=== PATIENT | female | born 2000 | race Caucasian/White ===

== ENCOUNTER 2020-08-14 17:42 | Emergency (ER) | payer OTHER ==
[~2020-08-14] VITALS: Ht 170.2 cm; Wt 61.2 kg
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
[2020-08-14] MEDS ORDERED: ACETAMINOPHEN 500 MG TABLET PO ONE (18:15)
[2020-08-14] MEDS ORDERED: IBUPROFEN 600 MG TABLET. PO ONE (18:15)
[2020-08-14 18:58] VITALS: BP 105/58
== END 2020-08-14 18:59 | disposition home or self-care (01) ==
LOC: ER 17:42
DX: S06.0X0A Concussion without loss of consciousness, initial encounter (principal); M54.6 Pain in thoracic spine; M54.2 Cervicalgia; V59.9XXA Occupant (driver) (passenger) of pick-up truck or van injured in unspecified traffic accident, initial encounter; Y93.89 Activity, other specified; Y92.413 State road as the place of occurrence of the external cause; Y99.8 Other external cause status
CPT/HCPCS: 99283

== ENCOUNTER 2020-08-15 19:45 | Emergency (ER) | payer OTHER ==
[~2020-08-15] VITALS: Ht 167.6 cm; Wt 60.1 kg
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
[2020-08-15] MEDS ORDERED: diphenhydrAMINE 50 MG/ML VIAL IVP ONE (20:30)
[2020-08-15] MEDS ORDERED: oxyCODONE/APAP 5/325 1 TAB TABLET PO ONE (20:30)
[2020-08-15] MEDS ORDERED: IV RINGERS SOLUTION,LACTATED 1,000 ML IV SCH (20:30)
[2020-08-15] MEDS ORDERED: PROCHLORPERAZINE 10 MG/2 ML VIAL. IV ONE (20:30)
[2020-08-15 20:37] VITALS: BP 122/75
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
[2020-08-15] MEDS ORDERED: ORPHENADRINE CITRATE 60 MG/2 ML VIAL. IM ONE (21:00)
--- NOTE | 2020-08-15 21:05 | EKG ---
[address] [address] Test Date: 2020-08-15 Test Time: 20:54:08 Pat Name: ALLISON MARI Department: Room: Gender: F Teaching Associate: : 2000 Requested By: FELISA GUERRERO Order Number: [id number] Reading MD: Measurements Intervals [place] Rate: 68 P: 57 MN: 160 QRS: 71 QRSD: 72 T: 44 QT: 368 QTc: 396 Interpretive Statements SINUS RHYTHM NORMAL ECG RI6.02 No previous ECG available for comparison
[2020-08-15 21:25] LABS: BARBITURATES NEG (NEG); BENZODIAZEPINES NEG (NEG); CANNABINOIDS NEG (NEG); COCAINE NEG (NEG); METHADONE NEG (NEG); OPIATES NEG (NEG); PHENCYCLIDINE NEG (NEG)
[2020-08-15 21:27] LABS: AMPHETAMINE/METHAMPHETAMINE NEG (NEG)
[2020-08-15 21:33] LABS: BASO # 0.1 x10^3/uL (0.0-0.2); BASO % 1 % (0-3); EOS # 0.2 x10^3/uL (0.0-0.7); EOS % 2 % (0-3); HEMATOCRIT 39.3 % (36.0-47.0); HEMOGLOBIN 13.4 g/dL (12.0-15.5); LYMPH # 2.1 x10^3/uL (1.0-4.8); LYMPH % 24 % (24-48); MEAN CORPUSCULAR HEMOGLOBIN 29 pg (25-35); MEAN CORPUSCULAR HGB CONC 34 g/dL (31-37); MEAN CORPUSCULAR VOLUME 87 fL (79-100); MONO # 0.6 x10^3/uL (0.0-1.1); MONO % 7 % (0-9); NEUT # 5.7 x10^3uL (1.8-7.7); NEUT % 67 % (31-73); PLATELET COUNT 259 x10^3/uL (140-400); RED BLOOD COUNT 4.55 x10^6/uL (3.50-5.40); RED CELL DISTRIBUTION WIDTH 12.3 % (11.5-14.5); WHITE BLOOD COUNT 8.6 x10^3/uL (4.0-11.0)
[2020-08-15 21:44] LABS: CALCIUM 8.1 mg/dL (8.5-10.1); CREATININE 0.9 mg/dL (0.6-1.0); POTASSIUM 3.7 mmol/L (3.5-5.1)
[2020-08-15 22:00] LABS: ALBUMIN 3.4 g/dL (3.4-5.0); DIRECT BILIRUBIN 0.1 mg/dL (0.0-0.2); MAGNESIUM 1.9 mg/dL (1.8-2.4); TOTAL BILIRUBIN 0.2 mg/dL (0.2-1.0)
[2020-08-15 22:19] LABS: BACTERIA,URINE FEW /HPF (0-FEW); BILIRUBIN,URINE NEG (NEG); CLARITY,URINE CLEAR; COLOR,URINE YELLOW; GLUCOSE,URINE NEG (NEG); NITRITE,URINE NEG (NEG); RBC,URINE OCC /HPF (0-2); SQUAMOUS EPITHELIAL CELL,UR FEW /LPF; UROBILINOGEN,URINE 0.2 mg/dL (0.2 mg/dL); WBC,URINE OCC /HPF (0-4)
[2020-08-16] MEDS ORDERED: SUMAtriptan SUCC 6 MG/0.5 ML VIAL SQ ONE ×2 (00:30→00:49)
[2020-08-16] MEDS ORDERED: ONDA4TAB7 PO (00:33)
[2020-08-16] MEDS ORDERED: HYDR-1179 PO (00:34)
[2020-08-16] MEDS ORDERED: SUMA100T3 PO (00:34)
--- NOTE | 2020-08-18 09:25 | NUR ---
IP: attempt to notify patient of COVID result. Left callback message.
--- NOTE | 2020-08-20 14:47 | NUR ---
IP: patient notified of COVID result.
== END 2020-08-16 01:18 | disposition home or self-care (01) ==
LOC: ER 19:45
DX: S46.819A Strain of other muscles, fascia and tendons at shoulder and upper arm level, unspecified arm, initial encounter (principal); Z20.822 Contact with and (suspected) exposure to COVID-19; G43.909 Migraine, unspecified, not intractable, without status migrainosus; H53.8 Other visual disturbances; R11.0 Nausea; J45.909 Unspecified asthma, uncomplicated; F31.9 Bipolar disorder, unspecified; Z86.73 Personal history of transient ischemic attack (TIA), and cerebral infarction without residual deficits; Z98.890 Other specified postprocedural states; V98.8XXA Other specified transport accidents, initial encounter; Y93.89 Activity, other specified; Y92.89 Other specified places as the place of occurrence of the external cause; Y99.8 Other external cause status
CPT/HCPCS: 36415; 70450; 71045; 80048; 80076; 80307; 81001; 81025; 82550; 83735; 83880; 84484; 84702; 85025; 85610; 85730; 93005; 96361; 96372; 96374; 96375; 99285; C9803; J0780; J1200; J2360; J3030; J7120; U0003

== ENCOUNTER 2021-07-29 18:06 | Emergency (ER) | payer OTHER ==
[~2021-07-29] VITALS: Ht 167.6 cm; Wt 63.1 kg
[~2021-07-29 18:06] MED LIST: HYDR-1179 PO; ONDA4TAB7 PO; SUMA100T3 PO
[2021-07-29 19:10] VITALS: BP 120/65
--- NOTE | 2021-07-29 19:11 | PHYS DOC ---
Past History Past Medical History: No Pertinent History Past Surgical History: No Surgical History Additional Past Surgical Histo: EYE SURGERY; I&D LEG Alcohol Use: None General Adult EDM: Chief Complaint: FEVER HPI: HPI: Patient is a 21 year old female who presents with above hx and complaints fever, chills, malaise, arthralgia, myalgia, pharyngitis. Patient normally follows with Dr. Villatoro. Had recent travel to [place].. No specific ill contacts. Does have a history of asthma. No history immunosuppression. No history of IV drug use. Normally healthy. Review of Systems: Review of Systems: Constitutional: Complains of fever or chills Eyes: Denies change in visual acuity HENT: Complains of sore throat Respiratory: Denies cough or shortness of breath Cardiovascular: Denies chest pain or edema GI: Denies abdominal pain, nausea, vomiting, bloody stools or diarrhea : Denies dysuria Musculoskeletal: Complains of generalized muscle and joint, back pain. Integument: Denies rash Neurologic: Denies headache, focal weakness or sensory changes Endocrine: Denies polyuria or polydipsia Lymphatic: Denies swollen glands Psychiatric: Denies depression or anxiety Family History: Family History: Noncontributory Current Medications: Current Meds: See nursing for home meds Allergies: Allergies: Allergies Coded Allergies Type Severity Reaction Last Updated Verified Sulfa (Sulfonamide Antibiotics) Allergy Unknown Anaphylaxis 08/14/20 Yes ceftriaxone Allergy Unknown Anaphylaxis 08/14/20 Yes Physical Exam: PE: Constitutional: Well developed, well nourished, no acute distress, non-toxic appearance. [] HENT: Normocephalic, atraumatic, bilateral external ears normal, oropharynx moist, postnasal drainage, mild erythema no oral exudates, nose swollen turbinates clear rhinorrhea Eyes: PERRLA, EOMI, conjunctiva normal, no discharge. [] Neck: Normal range of motion, no tenderness, supple, no stridor. [] Cardiovascular:Heart rate regular rhythm, no murmur [] Lungs & Thorax: Bilateral breath sounds equal apex of few scattered wheezes auscultation [] Abdomen: Bowel sounds normal, soft, no tenderness, no masses, no pulsatile masses. [] Skin: Warm, dry, no erythema, no rash. [] Back: No tenderness, no CVA tenderness. [] Extremities: No tenderness, no cyanosis, no clubbing, ROM intact, no edema. [] No cording. Neurologic: Alert and oriented X 3, normal motor function, normal sensory func tion, no focal deficits noted. [] Psychologic: Affect anxious., judgement normal, mood normal. [] EKG: EKG: [] Radiology/Procedures: Radiology/Procedures: [] Heart Score: C/O Chest Pain: N/A Risk Factors: Risk Factors: DM, Current or recent (<one month) smoker, HTN, HLP, family history of CAD, obesity. Risk Scores: Score 0 - 3: 2.5% MACE over next 6 weeks - Discharge Home Score 4 - 6: 20.3% MACE over next 6 weeks - Admit for Clinical Observation Score 7 - 10: 72.7% MACE over next 6 weeks - Early Invasive Strategies Course & Med Decision Making: Course & Med Decision Making Pertinent Labs and Imaging studies reviewed. (See chart for details) Push fluids. Self isolate x 5 days and retest on day 5, to make sure you are not shedding virus. Tylenol and Ibuprofen for discomfort. Must wear a mask anytime she is in contact with others. Impression: 1. Viral Syndrome 2. COVID - rapid positive [] Dragon Disclaimer: Dragon Disclaimer: This electronic medical record was generated, in whole or in part, using a voice recognition dictation system. Departure Departure: Referrals: RANDOLPH PINK DO, MPH (PCP) Dragon Disclaimer This chart was dictated in whole or in part using Voice Recognition software in a busy, high-work load, and often noisy Emergency Department environment. It may contain unintended and wholly unrecognized errors or omissions. Dragon Disclaimer This chart was dictated in whole or in part using Voice Recognition software in a busy, high-work load, and often noisy Emergency Department environment. It may contain unintended and wholly unrecognized errors or omissions. Dragon Disclaimer This chart was dictated in whole or in part using Voice Recognition software in a busy, high-work load, and often noisy Emergency Department environment. It may contain unintended and wholly unrecognized errors or omissions. FELISA GUERRERO MD Jul 29, 2021 19:11
[2021-07-29] MEDS ORDERED: IBUPROFEN 600 MG TABLET. PO ONE (20:00)
[2021-07-29] MEDS ORDERED: ACETAMINOPHEN 500 MG TABLET PO ONE (20:00)
[2021-07-29 20:22] LABS: INFLUENZA A PATIENT NEGATIVE (NEGATIVE); INFLUENZA B PATIENT NEGATIVE (NEGATIVE)
== END 2021-07-29 21:02 | disposition home or self-care (01) ==
LOC: ER 18:06
DX: U07.1 COVID-19 (principal); B34.9 Viral infection, unspecified; Z88.2 Allergy status to sulfonamides; Z88.1 Allergy status to other antibiotic agents
CPT/HCPCS: 87070; 87426; 87804; 87880; 99283

== ENCOUNTER 2021-08-04 00:25 | Emergency (ER) | payer OTHER ==
[~2021-08-04] VITALS: Ht 167.6 cm; Wt 63.1 kg
--- NOTE | 2021-08-04 00:30 | PHYS DOC ---
Past History Past Medical History: No Pertinent History, Asthma Additional Past Medical Histor: hypoglycemia Past Surgical History: No Surgical History Additional Past Surgical Histo: EYE SURGERY; I&D LEG Alcohol Use: None General Adult HPI: HPI: "..I ve been sick since I was diagnosis of COVID (07/29/21..)..Today coughing so bad .. I puke..." Patient is a 21 year old female who presents with above hx of COVID positive 07/29/21 after trip to [place]. Patient states she is over the chills fever malaise and arthralgia and myalgia with pharyngitis.. Patient however now is coughing so bad that she vomits. No recent travel. No bad food. No history of immunosuppression. Not had flu vaccination. Has not had COVID vaccination. Has not had Pneumovax. Patient does not know her best peak flow. Review of Systems: Review of Systems: Constitutional: Denies fever or chills Eyes: Denies change in visual acuity HENT: Denies nasal congestion or sore throat Respiratory: History of cough and wheezing Cardiovascular: Denies chest pain or edema GI: History of nausea and vomiting from coughing : Denies dysuria Musculoskeletal: Denies back pain or joint pain Integument: Denies rash Neurologic: Denies headache, focal weakness or sensory changes Endocrine: Denies polyuria or polydipsia Lymphatic: Denies swollen glands Psychiatric: Denies depression or anxiety Family History: Family History: Noncontributory Current Medications: Current Meds: See nursing for home meds Allergies: Allergies: Allergies Coded Allergies Type Severity Reaction Last Updated Verified Sulfa (Sulfonamide Antibiotics) Allergy Unknown Anaphylaxis 08/14/20 Yes ceftriaxone Allergy Unknown Anaphylaxis 08/14/20 Yes Physical Exam: PE: Constitutional: Well developed, well nourished, moderate acute distress, non- toxic appearance. [] HENT: Normocephalic, atraumatic, bilateral external ears normal, oropharynx moist, no oral exudates, nose normal. [] Eyes: PERRLA, EOMI, conjunctiva normal, no discharge. [] Neck: Normal range of motion, no tenderness, supple, no stridor. [] Cardiovascular:Heart rate regular rhythm, no murmur [] Lungs & Thorax: Bilateral breath sounds equal apex with scattered wheezing throughout auscultation [] severe coughing episodes to the point of vomiting Abdomen: Bowel sounds normal, soft, no tenderness, no masses, no pulsatile masses. [] Skin: Warm, dry, no erythema, no rash. [] Back: No tenderness, no CVA tenderness. [] Extremities: No tenderness, no cyanosis, no clubbing, ROM intact, no edema. [] Neurologic: Alert and oriented X 3, normal motor function, normal sensory function, no focal deficits noted. [] Psychologic: Affect anxious, judgement normal, mood normal. [] EKG: EKG: [] Radiology/Procedures: Radiology/Procedures: [][place] [address] IMAGING REPORT Signed PATIENT: ALLISON MARI ACCOUNT: [id number] : 2000 LOCATION: ER AGE: 21 SEX: F EXAM STATUS: REG ER ORD. PHYSICIAN: FELISA GUERRERO MD REASON: Hx. COVID pneumonia Dx 07/29. PROCEDURE: CHEST PA & LATERAL XR CHEST 2V History: Reason: Hx. COVID pneumonia Dx 07/29. / Spl. Instructions: / History: Comparison: August 15, 2020 Findings: No consolidation or pleural effusion. Normal heart size. No pneumothorax. Impression: 1. No acute cardiopulmonary process. Electronically signed by: Edson Madera DO (08/04/2021 2:10 AM) [facility] DICTATED AND SIGNED BY: EDSON MADERA DO DATE: 08/04/21 020 CC: FELISA GUERRERO MD; RANDOLPH PINK DO, M[facility] ~MTH0 0 Heart Score: C/O Chest Pain: N/A Risk Factors: Risk Factors: DM, Current or recent (<one month) smoker, HTN, HLP, family history of CAD, obesity. Risk Scores: Score 0 - 3: 2.5% MACE over next 6 weeks - Discharge Home Score 4 - 6: 20.3% MACE over next 6 weeks - Admit for Clinical Observation Score 7 - 10: 72.7% MACE over next 6 weeks - Early Invasive Strategies Course & Med Decision Making: Course & Med Decision Making Pertinent Labs and Imaging studies reviewed. (See chart for details) Take prednisone 50 mg daily for 5 days. Take Compazine 10 mg with 25 mg to 50 mg of Benadryl 4 times a day for active vomiting. Use MDI or albuterol treatments 4 times a day. Follow-up primary care. Return if any concerns. Get flu vaccination when you are off prednisone. Get Pneumovax vaccination when you are off prednisone. Get COVID vaccination in 5 to 6 months. Follow-up primary care. Return if any concerns. Impression: 1. 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 Reactive airway/asthma exacerbation [] Dragon Disclaimer: Dragon Disclaimer: This electronic medical record was generated, in whole or in part, using a voice recognition dictation system. Departure Departure: Referrals: RANDOLPH PINK DO, [facility] (PCP) Scripts Prochlorperazine Maleate (Compazine) 10 Mg Tablet 10 MG PO QIDPRN PRN for NAUSEA/VOMITING, #30 TAB Prov: FELISA GUERRERO MD 08/04/21 Albuterol Sulfate (ALBUTEROL SULFATE NEB SOLN ) 2.5 Mg/3 Ml Vial.neb 2.5 MG NEB QID for FOR ASTHMA, #120 EACH 0 Refills Prov: FELISA GUERRERO MD 08/04/21 Prednisone (PREDNISONE) 50 Mg Tablet 50 MG PO DAILY for reactiveairway for 5 Days, #5 TAB Prov: FELISA GUERRERO MD 08/04/21 Dragon Disclaimer This chart was dictated in whole or in part using Voice Recognition software in a busy, high-work load, and often noisy Emergency Department environment. It may contain unintended and wholly unrecognized errors or omissions. FELISA GUERRERO MD Aug 04, 2021 00:30
[2021-08-04] MEDS ORDERED: diphenhydrAMINE 50 MG/ML VIAL IM ONE (00:45)
[2021-08-04] MEDS ORDERED: PROCHLORPERAZINE 10 MG/2 ML VIAL. IM ONE (00:45)
[2021-08-04] MEDS ORDERED: PROC10TA57 PO (02:08)
[2021-08-04] MEDS ORDERED: ALBU2.5V5 NEB (02:08)
[2021-08-04] MEDS ORDERED: PRED50TA PO (02:08)
--- NOTE | 2021-08-04 02:12 | RAD ---
XR CHEST 2V History: Reason: Hx. COVID pneumonia Dx 07/29. / Spl. Instructions: / History: Comparison: August 15, 2020 Findings: No consolidation or pleural effusion. Normal heart size. No pneumothorax. Impression: 1. No acute cardiopulmonary process. Electronically signed by: Edson Madera DO (08/04/2021 2:10 AM) [facility]
[2021-08-04 02:13] LABS: BACTERIA,URINE FEW /HPF (0-FEW); BILIRUBIN,URINE NEG (NEG); CLARITY,URINE CLEAR; COLOR,URINE YELLOW; GLUCOSE,URINE NEG (NEG); NITRITE,URINE NEG (NEG); RBC,URINE OCC /HPF (0-2); SQUAMOUS EPITHELIAL CELL,UR MOD /LPF; WBC,URINE OCC /HPF (0-4)
[2021-08-04] MEDS ORDERED: ALBUTEROL SULFATE 8GM INHALER. INH ONE (02:15)
[2021-08-04] MEDS ORDERED: predniSONE 10 MG TABLET. PO ONE (02:15)
[2021-08-04 02:20] VITALS: BP 108/64
== END 2021-08-04 02:25 | disposition home or self-care (01) ==
LOC: ER 00:25
DX: G93.3 Postviral and related fatigue syndromes (principal); J45.901 Unspecified asthma with (acute) exacerbation; Z88.2 Allergy status to sulfonamides; Z88.1 Allergy status to other antibiotic agents
CPT/HCPCS: 71046; 81001; 81025; 94640; 96372; 99284; J0780; J1200; J7512; 94664

== ENCOUNTER 2021-10-13 15:34 | Emergency (ER) | payer OTHER ==
[~2021-10-13] VITALS: Ht 167.6 cm; Wt 63.1 kg
[~2021-10-13 15:34] MED LIST changes: +ALBU2.5V5 NEB; +PRED50TA PO; +PROC10TA57 PO
[2021-10-13 15:56] VITALS: BP 102/64
--- NOTE | 2021-10-13 16:11 | PHYS DOC ---
Past History Past Medical History: No Pertinent History, Asthma Additional Past Medical Histor: hypoglycemia, stroke, PCOS Past Surgical History: No Surgical History Additional Past Surgical Histo: EYE SURGERY; I&D LEG, Alcohol Use: None General Adult EDM: Chief Complaint: ABDOMINAL PAIN HPI: HPI: 21-year-old female presents with abdominal pain. Patient states the pain started about a week ago. The pain is made much worse after she eats anything. It increases to an 8 or 9 out of 10. It is currently 4 out of 10 in the epigastric and umbilical area. She has had no difficulty urinating or defecating. Denies fever or chills. There is a history of gallbladder disease in her family. Review of Systems: Review of Systems: Constitutional: Denies fever or chills Eyes: Denies change in visual acuity HENT: Denies nasal congestion or sore throat Respiratory: Denies cough or shortness of breath Cardiovascular: Denies chest pain or edema GI: Periumbilical and epigastric abdominal pain. Denies nausea, vomiting, bloody stools or diarrhea : Denies dysuria Musculoskeletal: Denies back pain or joint pain Integument: Denies rash Neurologic: Denies headache, focal weakness or sensory changes Endocrine: Denies polyuria or polydipsia Lymphatic: Denies swollen glands Psychiatric: Denies depression or anxiety Current Medications: Current Meds: Current Medications Medications (Trade) Dose Ordered Sig/Wilmer Start Time Stop Time Status Last Admin Dose Admin Sodium Chloride 1,000 ml @ 1,000 mls/hr 1X ONCE 10/13/21 16:15 10/13/21 17:14 UNV Allergies: Allergies: Allergies Coded Allergies Type Severity Reaction Last Updated Verified Sulfa (Sulfonamide Antibiotics) Allergy Unknown Anaphylaxis 08/14/20 Yes ceftriaxone Allergy Unknown Anaphylaxis 08/14/20 Yes Physical Exam: PE: Constitutional: Well developed, well nourished, no acute distress, non-toxic appearance. [] HENT: Normocephalic, atraumatic, bilateral external ears normal, oropharynx moist, no oral exudates, nose normal. [] Eyes: PERRLA, EOMI, conjunctiva normal, no discharge. [] Neck: Normal range of motion, no tenderness, supple, no stridor. [] Cardiovascular: Heart rate regular rhythm, no murmur [] Lungs & Thorax: Bilateral breath sounds clear to auscultation [] Abdomen: Bowel sounds normal, soft, periumbilical and epigastric tenderness, no masses, no pulsatile masses. [] Skin: Warm, dry, no erythema, no rash. [] Back: No tenderness, no CVA tenderness. [] Extremities: No tenderness, no cyanosis, no clubbing, ROM intact, no edema. [] Neurologic: Alert and oriented X 3, normal motor function, normal sensory function, no focal deficits noted. [] Psychologic: Affect normal, judgement normal, mood normal. [] Current Patient Data: Vital Signs: Vital Signs Date Time Temp Pulse Resp B/P (MAP) Pulse Ox O2 Delivery O2 Flow Rate FiO2 10/13/21 15:56 98.2 74 16 102/64 (77) 94 Room Air EKG: EKG: [] Radiology/Procedures: Radiology/Procedures: [] Impressions: Exam Date: 10/13/2021 4:[address] ABDOMEN+PELVIS W Indication: Reason: epigastric pain, nauseated / Spl. Instructions: / History: . TECHNIQUE: CT examination of the abdomen and pelvis was performed following the administration of nonionic intravenous contrast. One or more of the following dose reduction techniques were utilized: *Automated exposure control (AEC) *Adjustment of mA and/or kV according to patient size *Use of iterative reconstruction technique *CT scan done according to ALARA, or ALARA/IMAGE GENTLY FINDINGS: The visualized lung bases are clear. The liver, gallbladder, spleen, pancreas, adrenal glands and kidneys are normal. Urinary bladder is normal in appearance. There is a 2.9 cm right adnexal cyst. There is no bowel obstruction or inflammation. The appendix is normal. No significant atherosclerotic calcifications are seen. No lymphadenopathy or ascites is seen. Osseous structures are intact. IMPRESSION: No evidence of acute intra-abdominal pathology. Electronically signed by: Yudelka Gomez MD (10/13/2021 5:27 PM) [facility] DICTATED AND SIGNED BY: YUDELKA GOMEZ MD DATE: 10/13/21 1277 CC: ENRIQUETA ESCAMILLA DO; RANDOLPH PINK DO, MPH ~ Heart Score: C/O Chest Pain: N/A Risk Factors: Risk Factors: DM, Current or recent (<one month) smoker, HTN, HLP, family history of CAD, obesity. Risk Scores: Score 0 - 3: 2.5% MACE over next 6 weeks - Discharge Home Score 4 - 6: 20.3% MACE over next 6 weeks - Admit for Clinical Observation Score 7 - 10: 72.7% MACE over next 6 weeks - Early Invasive Strategies Course & Med Decision Making: Course & Med Decision Making Pertinent Labs and Imaging studies reviewed. (See chart for details) The patient's labs are unremarkable. Her CT of the abdomen pelvis is negative for acute findings. She did look a bit dehydrated. Urinalysis is negative for infection. She was given a liter normal saline. This could be the patient's gallbladder. It seems to have a strong association with food. I have advised she follow-up with her primary care physician and have a HIDA scan. She is stable for discharge at this time. [] Dragon Disclaimer: Dragon Disclaimer: This electronic medical record was generated, in whole or in part, using a voice recognition dictation system. Departure Departure: Impression: Primary Impression: Abdominal pain Disposition: HOME / SELF CARE / HOMELESS Condition: STABLE Referrals: RANDOLPH PINK DO, M[facility] (PCP) Patient Instructions: Abdominal Pain, [id number] ENRIQUETA ESCAMILLA DO Oct 13, 2021 16:11
[2021-10-13] MEDS ORDERED: IOHEXOL 300 MG/ML 75 ML VIAL. IV ONE (16:15)
[2021-10-13] MEDS ORDERED: IV NORMAL SALINE 1,000ML 1,000 ML IV ONE (16:15)
[2021-10-13] MEDS ORDERED: CONTRAST GIVEN. MC PRN (16:30)
[2021-10-13 16:36] LABS: BASO # 0.1 x10^3/uL (0.0-0.2); BASO % 1 % (0-3); EOS % 11 % (0-3); HEMATOCRIT 40.4 % (36.0-47.0); HEMOGLOBIN 13.6 g/dL (12.0-15.5); LYMPH # 1.6 x10^3/uL (1.0-4.8); LYMPH % 18 % (24-48); MEAN CORPUSCULAR HEMOGLOBIN 30 pg (25-35); MEAN CORPUSCULAR HGB CONC 34 g/dL (31-37); MEAN CORPUSCULAR VOLUME 88 fL (79-100); MONO # 0.4 x10^3/uL (0.0-1.1); MONO % 4 % (0-9); NEUT # 5.8 x10^3uL (1.8-7.7); NEUT % 66 % (31-73); PLATELET COUNT 254 x10^3/uL (140-400); RED BLOOD COUNT 4.59 x10^6/uL (3.50-5.40); RED CELL DISTRIBUTION WIDTH 12.3 % (11.5-14.5); WHITE BLOOD COUNT 8.9 x10^3/uL (4.0-11.0)
[2021-10-13 16:43] LABS: CALCIUM 8.7 mg/dL (8.5-10.1); GFR 69.3; POTASSIUM 3.7 mmol/L (3.5-5.1)
[2021-10-13 16:49] LABS: ALBUMIN 3.5 g/dL (3.4-5.0); ALBUMIN/GLOBULIN RATIO 0.9 (1.0-1.7); TOTAL BILIRUBIN 0.3 mg/dL (0.2-1.0); TOTAL PROTEIN 7.3 g/dL (6.4-8.2)
[2021-10-13 16:57] LABS: BARBITURATES NEG (NEG); BENZODIAZEPINES NEG (NEG); CANNABINOIDS NEG (NEG); COCAINE NEG (NEG); METHADONE NEG (NEG); OPIATES NEG (NEG); PHENCYCLIDINE NEG (NEG)
[2021-10-13 17:01] LABS: AMPHETAMINE/METHAMPHETAMINE NEG (NEG)
[2021-10-13 17:05] LABS: BACTERIA,URINE MOD /HPF (0-FEW); CLARITY,URINE HAZY; COLOR,URINE YELLOW; GLUCOSE,URINE NEG (NEG); NITRITE,URINE NEG (NEG); RBC,URINE OCC /HPF (0-2); SQUAMOUS EPITHELIAL CELL,UR MANY /LPF
--- NOTE | 2021-10-13 17:29 | RAD ---
Exam Date: 10/13/2021 4:[address] ABDOMEN+PELVIS W Indication: Reason: epigastric pain, nauseated / Spl. Instructions: / History: . TECHNIQUE: CT examination of the abdomen and pelvis was performed following the administration of no nionic intravenous contrast. One or more of the following dose reduction techniques were utilized: *Automated exposure control (AEC) *Adjustment of mA and/or kV according to patient size *Use of iterative reconstruction technique *CT scan done according to ALARA, or ALARA/IMAGE GENTLY FINDINGS: The visualized lung bases are clear. The liver, gallbladder, spleen, pancreas, adrenal glands and kidneys are normal. Urinary bladder is normal in appearance. There is a 2.9 cm right adnexal cyst. There is no bowel obstruction or inflammation. The appendix is normal. No significant atherosclerotic calcifications are seen. No lymphadenopathy or ascites is seen. Osseous structures are intact. IMPRESSION: No evidence of acute intra-abdominal pathology. Electronically signed by: Nain Gomez MD (10/13/2021 5:27 PM) [facility]
[2021-10-13] MEDS ORDERED: PANTOPRAZOLE IV 40 MG VIAL. IVP ONE (18:00)
[2021-10-13] MEDS ORDERED: FAMOTIDINE 20 MG/2 ML VIAL IVP ONE (18:00)
[2021-10-13] MEDS ORDERED: HYDR-2759 PO (18:01)
[2021-10-13] MEDS ORDERED: ONDA4TAB12 PO (18:01)
[2021-10-13] MEDS ORDERED: ONDANSETRON ODT 4 MG TAB.RAPDIS PO ONE (18:15)
[2021-10-13] MEDS ORDERED: HYDROcodone/APAP 5/325MG 1 TAB TABLET PO ONE (18:15)
== END 2021-10-13 18:35 | disposition home or self-care (01) ==
LOC: ER 15:34
DX: R10.33 Periumbilical pain (principal); R10.13 Epigastric pain; J45.909 Unspecified asthma, uncomplicated; Z88.2 Allergy status to sulfonamides; Z88.1 Allergy status to other antibiotic agents
CPT/HCPCS: 36415; 74177; 80053; 80307; 81001; 81025; 83690; 85025; 87086; 96361; 96374; 96375; 99285; C9113; J3490; J7030; Q0162; Q9967